=== PATIENT | female | born 1945 | race Caucasian/White ===

== ENCOUNTER 2024-12-03 13:42 | Emergency (ER) | payer MEDICARE, SELFPAY ==
[2024-12-03] VITALS (9 sets, daily range): BP systolic 165–203; BP diastolic 61–126; PULSE 53–62; RESP 16–18; TEMP 36.5–36.8; O2SAT 91–98; BMI 30.5
--- NOTE | ~2024-12-03 | CT_ITS ---
CLINICAL HISTORY: headache CT head without contrast Comparison: None Findings: No intra-axial mass, midline shift, hydrocephalus, or acute hemorrhage. No significant atrophy-like change or white matter disease. There is no sinus or mastoid fluid. There is mucoperiosteal thickening with probable inspissated mucus in the right maxillary antrum. The orbits are within normal limits. There is no acute fracture. IMPRESSION: 1. No acute intracranial findings This document has been electronically signed by: Mark Jones MD on 12/03/2024 17:21:44
--- NOTE | ~2024-12-03 | CT_ITS ---
CLINICAL HISTORY: severe R sided facial pain and swelling CT maxillofacial with contrast Comparison: None Findings: No acute fractures. No dislocations. Temporomandibular joints are intact. Paranasal sinuses and mastoid air cells clear. Unremarkable orbital contents. Visualized intracranial contents are within normal limits. No foreign bodies. IMPRESSION: Unremarkable maxillofacial CT. This document has been electronically signed by: Mark Jones MD on 12/03/2024 17:23:01
--- NOTE | 2024-12-03 15:04 | PC.NURSE ---
Pt comes to ED from Urgent Care for elevated BP. Pt reports she was being seen for severe facial pain s/p dental extraction on 11/23/24. A&Ox3, afebrile HTN noted Denies SOB, n/v, Skin is warm and dry Breaths and speech are unlabored Facial symmetry noted.
--- NOTE | 2024-12-03 15:09 | ECG_ITS ---
Test Reason : HTN Blood Pressure : / mmHG Vent. Rate : 058 BPM Atrial Rate : 058 BPM P-R Int : 174 ms QRS Dur : 068 ms QT Int : 468 ms P-R-T Axes : 075 -12 108 degrees QTc Int : [address] & T wave abnormality, consider lateral ischemia Abnormal ECG No previous ECGs available Referred By: Maricel Pickett Electronically Signed By:QUINCY RAHMAN MD
[2024-12-03 15:36] LABS: MANUAL DIFF FLAG NO
[2024-12-03 15:37] LABS: Basophils Percent Auto 0.5 % (0-2); Eosinophils Absolute Auto 0.1 X10*3/uL (0.0-0.4); Eosinophils Percent Auto 1.7 % (0-4); Hematocrit 38.2 % (37.0-47.0); Hemoglobin 12.9 g/dl (12.0-16.0); Imm Gran Abs Auto 0.02 X10*3/uL (0.00-0.03); Imm Gran Pct Auto 0.3 % (0.0-0.4); Lymphocytes Absolute Auto 0.8 X10*3/uL (1.2-4.9); Lymphocytes Percent Auto 12.9 % (20-40); Mean Corpuscular HGB Conc 33.8 g/dl (31.0-35.0); Mean Corpuscular Hemoglobin 30.6 pg (27.0-33.0); Mean Corpuscular Volume 90.7 fL (80.0-98.0); Mean Platelet Volume 8.8 fL (9.4-12.3); Monocytes Absolute Auto 0.6 X10*3/uL (0.1-1.2); Monocytes Percent Auto 10.1 % (2-11); Neutrophils Absolute Auto 4.3 x10*3/uL (2.0-8.3); Neutrophils Percent Auto 74.5 % (45-73); Platelet Count 238 X10*3/uL (160-400); Red Blood Count 4.21 X10*6/uL (4.20-5.50); Red Cell Distribution Width 13.3 % (11.0-16.0); White Blood Count 5.8 X10*3/uL (4.8-10.8)
[2024-12-03] MEDS: Morphine Sulfate 4 MG/ML CARTRIDGE IVPUSH (15:42)
[2024-12-03] MEDS: ondansetron HCL 4 MG/2 ML VIAL IVPUSH (15:43)
[2024-12-03 15:53] LABS: Lactic Acid 0.9 mmol/L (0.5-2.0)
[2024-12-03 16:02] LABS: Troponin-I High Sensitivity 7.9 ng/L (<3.5-17.0)
[2024-12-03 16:11] LABS: Alanine Aminotransferase 20 U/L (0-31); Albumin Level 3.9 g/dL (3.5-5.0); Anion Gap 10 (12-20); Aspartate Amino Transferase 29 U/L (5-31); Bilirubin Direct 0.1 mg/dL (0.0-0.5); Bilirubin Total 0.4 mg/dL (0.0-1.0); Blood Urea Nitrogen 9 mg/dL (9-16); Carbon Dioxide 28 mmol/L (22-29); Chloride 109 mmol/L (96-108); Creatinine Clr Calc Pharmacy 65.1; Estimated Glomerular Filt Rate > 60; Glucose Random 92 mg/dL (60-115); Magnesium 1.9 mg/dL (1.6-2.6); Potassium 3.1 mmol/L (3.3-5.1); Sodium 144 mmol/L (135-145); Total Protein 6.8 g/dL (6.5-8.0)
[2024-12-03] MEDS: Acetaminophen 1,000 MG/100 ML PIGGYBACK 400 MG IV (16:18)
--- NOTE | 2024-12-03 16:19 | ED.HA ---
HPI - Headache General Chief Complaint: Dental/Oral Stated Complaint: HTN S/P TOOTH EXTRACTION Time Seen by Provider: 12/03/24 14:22 Source: patient and family Mode of arrival: ambulatory Limitations: no limitations History of Present Illness ED Provider: PEGGY HPI Narrative: 79 yo female with PMH of HTN not on blood thinners who has been seen since 11/23 by a dentist s/p R upper molar tooth extraction. She has been on scheduled motrin and amoxicillin x 3 weeks. No fevers but she cannot tolerate the pain on the R side and behind her eye but no vision changes. She is not sleeping it is a constant deep ache no sharp shooting pains. The patient went to urgent care today who noted elevated BPs but the patient was in significant pain. No other trauma, no systemic symptoms she just cannot take it anymore. States the dentist just did a panorex and it was normal. MD elicited complaint: headache Pertinent past history: other Onset (ago): day(s) (11/23) Onset description: gradually Location: right, frontal, facial and retro-orbital Severity: severe Quality & Timing: throbbing Exacerbating factors: other (states it always bothers her) Relieving factors: nothing Context: occurred at rest Associated symptoms: eye pain Treatments prior to arrival: ibuprofen Related Data Allergies Allergy/AdvReac Type Severity Reaction Status Date / Time No Known Allergies Allergy Verified 12/03/24 15:00 Review of Systems Review of Systems: .Constitutional : No Fever, No Chills, No Fatigue ENT/Mouth : No sore throat, No Rhinorrhea Eyes: No Eye Pain, No Swelling, No Redness Cardiovascular : No Chest Pain, No SOB, No Dyspnea on Exertion Respiratory : No Cough, No Sputum Gastrointestinal : No Nausea, No Vomiting, No Diarrhea, No abdominal Pain Genitourinary : No Dysuria, No Urinary Frequency, No Hematuria, Musculoskeletal : No joint pain, No Myalgias, No Joint Swelling Skin : No Skin Lesions, No rash Neuro : No Weakness, No Numbness, No Dizziness, positive Headache Psych : No Anxiety/Panic, No Depression All other systems reviewed and are negative [facility] Past Medical History Attestation statement: The following information was validated with the patient. Source: old records reviewed Medical History HTN (hypertension) Social History Social History (Updated 12/03/24 @ 16:33 by Maricel Pickett DO) Patient Tobacco Use Status: Never used Tobacco Physical Exam Vital Signs: Vital Signs: Last Vital Signs Temp 97.8 F 12/03/24 15:02 Pulse 57 12/03/24 16:14 Resp 16 12/03/24 16:14 BP 178/64 H 12/03/24 16:14 Pulse Ox 91 L 12/03/24 16:14 O2 Del Method Room Air 12/03/24 16:14 BMI result Body Mass Index 30.5 Appearance: Alert. Oriented X3. No acute distress. Eyes: Pupils equal, round and reactive to light. ENT: Pharynx normal. R zygoma and periorbital area is swollen but not red EOM intact no pain and no vision changes eye is not injected, R upper molar area has small red area but no fluctuance and no trismus, she appears in pain, no rash Neck: Normal inspection. Neck supple. CVS: Normal heart rate and rhythm. Pulses normal. Respiratory: No respiratory distress. Breath sounds normal. Abdomen: Soft and non-tender. Skin: Skin warm and dry. Normal skin color. Extremities: No lower extremity edema. Neuro: Oriented X 3. No motor deficit. No sensory deficit. CN2-12 intact Course Course Course Narrative: BP coming down with morphine Medications Administered Discontinued Medications Generic Name Dose Route Start Last Admin Trade Name Dariuszq PRN Reason Stop Dose Admin Acetaminophen 1,000 mg in 100 mls @ 400 mls/hr 12/03/24 16:13 12/03/24 16:18 Ofirmev IV 12/03/24 16:27 400 mls/hr ONCE ONE Administration Morphine Sulfate 4 mg 12/03/24 15:10 12/03/24 15:42 Morphine Sulfate 4 Mg/Ml Cartridge IVPUSH 12/03/24 15:11 4 mg ONCE ONE Administration Protocol Ondansetron HCl 4 mg 12/03/24 15:10 12/03/24 15:43 Ondansetron Hcl 4 Mg/2 Ml Vial IVPUSH 12/03/24 15:11 4 mg ONCE ONE Administration Medical Decision Making Medical Decision Making MDM Narrative: 79 yo female with PMH of HTN here with pain of upper face that is unrelenting since 11/23 s/p tooth removal who has been on amoxicilin since. She has sig pain but exam has mild swelling and no redness, EOMi without pain and no proptosis or vision changes. She has no CP/SOB. At this time could be deeper space pathology, residual root, trigeminal neuralgia or GCA - at this time CT head for mass, CT facial bones for pathology and try IV morphine for BP vs HTN medications no signs of end organ failure at this time Differential Diagnosis Differential Diagnoses: The differential diagnosis associated with the presentation includes deeper space ds, facial pain, contusion, fracture, tension headache, HTN Admission/Observation Consideration of admission/observation: Escalation of care including admission/observation considered signed out to Dr. Carson pending workup Lab Data MDM Lab Attestation statement: I reviewed the patient's lab results. 12/03/24 15:30 12/03/24 15:30 Labs: Lab Results 12/03/24 Range/Units 15:30 WBC 5.8 (4.8-10.8) X10*3/uL RBC 4.21 (4.20-5.50) X10*6/uL Hgb 12.9 (12.0-16.0) g/dl Hct 38.2 (37.0-47.0) % MCV 90.7 (80.0-98.0) fL MCH 30.6 (27.0-33.0) pg MCHC 33.8 (31.0-35.0) g/dl RDW 13.3 (11.0-16.0) % Plt Count 238 (160-400) X10*3/uL MPV 8.8 L (9.4-12.3) fL Immature Gran % (Auto) 0.3 (0.0-0.4) % Neut % (Auto) 74.5 H (45-73) % Lymph % (Auto) 12.9 L (20-40) % Armstrong % (Auto) 10.1 (2-11) % Eos % (Auto) 1.7 (0-4) % Baso % (Auto) 0.5 (0-2) % Lymph # (Auto) 0.8 L (1.2-4.9) X10*3/uL Armstrong # (Auto) 0.6 (0.1-1.2) X10*3/uL Eos # (Auto) 0.1 (0.0-0.4) X10*3/uL Baso # (Auto) 0.0 (0.0-0.2) X10*3/uL Abs Immat Gran (auto) 0.02 (0.00-0.03) X10*3/uL Absolute Neuts (auto) 4.3 (2.0-8.3) x10*3/uL Absolute Nucleated RBC 0.000 (0.0-0.012) X10*3/uL Nucleated RBC % (auto) 0.0 (0.0-0.2) /100WBC Sodium 144 (135-145) mmol/L Potassium 3.1 L (3.3-5.1) mmol/L Chloride 109 H (96-108) mmol/L Carbon Dioxide 28 (22-29) mmol/L Anion Gap 10 L (12-20) BUN 9 (9-16) mg/dL Creatinine 0.76 (0.5-1.4) mg/dL Estim Creat Clear Calc 65.1 Estimated GFR > 60 Random Glucose 92 (60-115) mg/dL Lactic Acid 0.9 (0.5-2.0) mmol/L Calcium 9.0 (8.4-10.2) mg/dL Magnesium 1.9 (1.6-2.6) mg/dL Total Bilirubin 0.4 (0.0-1.0) mg/dL Direct Bilirubin 0.1 (0.0-0.5) mg/dL AST 29 (5-31) U/L ALT 20 (0-31) U/L Troponin I High Sens 7.9 (<3.5-17.0) ng/L Total Protein 6.8 (6.5-8.0) g/dL Albumin 3.9 (3.5-5.0) g/dL Independent Interpretation I performed an independent interpretation of an: EKG Interpretation: Rate: 58 Rhythm: sinus bradycardia [place]: left Normal P waves. Normal [place]. Normal QRS complex. ST T wave : no [place], nonspecific ST T wave changes lateral leads qTC: 459 prior studies: no prior The study has been interpreted contemporaneously by me. . Independent Historian Clinical information obtained from an independent historian. History obtained from or confirmed by: Spouse Discharge Plan Discharge Clinical Impression: Acute hypokalemia, Acute facial pain Patient Disposition: Still a Patient
[2024-12-03] MEDS: iohexoL 350 MG/ML 100 ML INFUS..BTL IV (16:38)
[2024-12-03 16:45] LABS: Alkaline Phosphatase 77 U/L (39-117)
[2024-12-03] MEDS: Potassium Chloride ER 20 MEQ TAB.ER.PRT 40 MEQ PO (16:50)
[2024-12-03 18:25] LABS: Erythrocyte Sedimentation Rate 10 MM/HR (0-20)
[2024-12-03] MEDS: amLODIPine Besylate 10 MG TABLET PO (19:20)
--- NOTE | 2024-12-03 20:07 | MHC.EDTECH ---
pt ambulated to bathroom without o2 and 1 assistance. no complaints were made. when returning back to room pt felt sob, on RA o2 was reading 90%. pt was put back on 2L nc o2 reading 97%
[2024-12-03 20:26] LABS: Appearance Urine Clear; Color Urine Yellow; Glucose Urine UA Negative (Negative); Leukocyte Esterase Urine Negative (Negative); Nitrite Urine Negative (Negative); Specific Gravity - Urine >= 1.030 (1.005-1.025); Urine Blood Negative (Negative); Urine Ketones 15 mg/dL (Negative); Urine Protein Negative (Neg-Trace)
[2024-12-03] MEDS: hydrALAZINE HCl 25 MG TABLET PO (21:10)
[2024-12-04 00:02] VITALS: BP 167/62; PULSE 62; RESP 16; TEMP 36.8; O2SAT 95
== END 2024-12-04 00:10 | disposition home or self-care (01) ==
PROVIDERS: Emergency Medicine; Emergency Provider Emergency Medicine; PCP Internal Medicine
DX: G50.1 Atypical facial pain (principal); E87.6 Hypokalemia; R00.1 Bradycardia, unspecified; R51.9 Headache, unspecified; I10 Essential (primary) hypertension
CPT/HCPCS: 36415; 70450; 70487; 80048; 80076; 81003; 83605; 83735; 84484; 85025; 85652; 87040; 93005; 96365; 96375; 99284; 99285; J0131; J2270; J2405; Q9967

== ENCOUNTER → 2024-12-03 15:09 | Outpatient (BNV) | payer MEDICARE, SELFPAY | PROVIDERS: Emergency Provider Emergency Medicine; PCP Internal Medicine; Visit Provider Specialist | DX: R68.84 Jaw pain (principal); R51.9 Headache, unspecified | CPT/HCPCS: 70450; 70487 ==

== ENCOUNTER → 2024-12-03 15:09 | Outpatient (BNV) | payer MEDICARE, SELFPAY | PROVIDERS: Emergency Provider Emergency Medicine; PCP Internal Medicine; Visit Provider Internal Medicine Cardiovascular Disease | DX: R00.1 Bradycardia, unspecified (principal); R94.31 Abnormal electrocardiogram [ECG] [EKG]; I10 Essential (primary) hypertension | CPT/HCPCS: 93010 ==